=== PATIENT | male | born 1990 | race Caucasian/White ===

== ENCOUNTER 2020-06-01 09:50 | Emergency (ER) | payer MEDICAID ==
[~2020-06-01] VITALS: Ht 177.8 cm; Wt 61.4 kg
[2020-06-01 11:56] VITALS: BP 116/72
[2020-06-01] MEDS ORDERED: IBUPROFEN 600 MG TABLET PO ONE (12:00)
== END 2020-06-01 12:30 | disposition home or self-care (01) ==
LOC: EMS 09:50
DX: S13.4XXA Sprain of ligaments of cervical spine, initial encounter (principal); Z87.311 Personal history of (healed) other pathological fracture; V49.9XXA Car occupant (driver) (passenger) injured in unspecified traffic accident, initial encounter; Y93.89 Activity, other specified; Y92.89 Other specified places as the place of occurrence of the external cause; Y99.8 Other external cause status
CPT/HCPCS: 72125; Z7502; Z7610